=== PATIENT | female | born 2000 | race Caucasian/White ===

== ENCOUNTER 2019-04-14 12:53 | Outpatient (CLI) | payer OTHER ==
--- NOTE | 2019-04-14 15:38 | MRI ---
MRI OF THE LEFT ELBOW WITHOUT CONTRAST: INDICATION: History of left elbow injury while cheerleading in February of 2019 with persistent left elbow pain. COMPARISON: None. FINDINGS: No large joint effusion is evident. There is some mild subcortical bone marrow edema involving the c oronoid process medially. There is some very mild thickening of the anterior band of the ulnar colla teral ligament with some intermediate to high T2 signal seen along the articular surface of the mid t o proximal aspect of the anterior band of the ulnar collateral ligament. No full-thickness tear is g rossly evident. No osteochondral lesion is noted. The radial collateral and lateral ulnar collatera l ligaments appear intact. The common flexor and common extensor origins are normal appearing. Manuel ps and brachialis insertions are normal appearing. The triceps insertion is normal appearing. The u lnar nerve has a normal appearance. IMPRESSION: 1. Findings suspicious for a mild grade II sprain of the mid to proximal ulnar collateral ligament. 2. Mild subcortical edema involving the ulnar aspect of the coronoid process near the sublime tuberc le. POS: OFF
== END 2019-04-14 12:54 | disposition home or self-care (01) ==
LOC: SCSMRI 12:53
PROVIDERS: ATTEND Orthopaedic Surgery
DX: M25.522 Pain in left elbow (principal); R60.0 Localized edema